=== PATIENT | female | born 1940 ===

== ENCOUNTER 2017-09-14 10:12 | Outpatient (CLI) | payer MEDICARE, BC | END 2017-09-14 10:13 | disposition home or self-care (01) | LOC: BICRAD 10:12 | PROVIDERS: ATTEND Dentist | DX: T18.2XXA Foreign body in stomach, initial encounter (principal) | CPT/HCPCS: 71045; 74018 ==

== ENCOUNTER 2021-07-19 14:43 | Outpatient (CLI) | payer MEDICARE, BC | END 2021-07-19 14:44 | disposition home or self-care (01) | LOC: BICRAD 14:43 | PROVIDERS: ATTEND Allergy & Immunology | DX: J15.9 Unspecified bacterial pneumonia (principal); J12.9 Viral pneumonia, unspecified | CPT/HCPCS: 71046 ==